=== PATIENT | female | born 1985 | race Caucasian/White ===

== ENCOUNTER 2021-07-14 15:41 | Outpatient (CLI) | payer OTHER, SELFPAY | END 2021-07-14 23:59 | disposition home or self-care (01) | LOC: LABSPEC 15:44 | PROVIDERS: Referring Provider Otolaryngology; Visit Provider Otolaryngology | DX: J01.90 Acute sinusitis, unspecified (principal) | CPT/HCPCS: 87070; 87077; 87205 ==

== ENCOUNTER 2023-12-09 08:11 | Day surgery (SDC) | payer OTHER, SELFPAY ==
[2023-12-06 15:31] LABS: Anion Gap 6 (5-15); BUN 12 mg/dL (7-18); BUN/Creat Ratio 12.2 RATIO (10-20); Calcium,Total 9.4 mg/dL (8.5-10.1); Chloride 105 mmol/L (98-107); Creatinine, Serum 0.98 mg/dL (0.55-1.02); EST Glomerular Filtration Rate 67 mL/min (>60); Est Glom Filt Rate - Afr Amer 81 mL/min (>60); Glucose 109 mg/dL (74-106); Potassium 4.4 mmol/L (3.5-5.1); Sodium Level 137 mmol/L (136-145)
[2023-12-06 15:42] LABS: Hemoglobin A1c 6.2 % (3.8-5.6)
[2023-12-09] VITALS (8 sets, daily range): BP systolic 108–128; BP diastolic 84–91; PULSE 73–94; RESP 16–20; TEMP 36.4–36.6; O2SAT 91–98; BMI 52.7
[2023-12-09 08:50] LABS: Internal QC Validated? YES +Cl - CLEAR BKGD; Pregnancy, Urine Negative Negative; Record Kit Lot#,Urine Preg HCG0000772476
--- NOTE | 2023-12-09 09:19 | PCM.PRE.AN2 ---
ASA Classification* ASA Classification ASA Classification: 3 Assessment & Plan Anesthesia* Anesthesia Assessment Anesthesia Assessment: Discussed sedation and/or anesthesia options, risks, benefits, and alternatives with patient/parents/legal guardian/POA. Questions invited. The patient/parents/legal guardian/POA seems to understand and agrees to proceed with anesthesia plan. Reviewed the physical assessment, medical history, allergy history and patient home medications list prior to surgery/procedure/anesthetic and documented any changes. Performed airway and anesthesia risk assessments. Anesthesia Type Anesthesia Type: General (*see written pre anesthesia record for full assessment) Anesthesia Focused Assessment* Temperature: 98 F Pulse Rate: 80 Blood Pressure: 116/91 Respiratory Rate: 16 Pulse Ox: 98 Airway Assessment Mouth opens: >3 cm Mallampati Score: II Focused Labs Anesthesia Preop lab: CBC WBC 11.5 k/mm3 (4.4-11.0) H 10/05/12 09:12 RBC 4.75 M/mm3 (4.2-5.4) 10/05/12 09:12 Hgb 14.2 g/dl (12.0-15.0) 10/05/12 09:12 Hct 42.1 % (37-47) 10/05/12 09:12 Plt Count 231 K/mm3 (150-450) 10/05/12 09:12 CHEMISTRY Potassium 4.4 mmol/L (3.5-5.1) 12/06/23 13:54 Sodium 137 mmol/L (136-145) 12/06/23 13:54 BUN 12 mg/dL (7-18) 12/06/23 13:54 Creatinine 0.98 mg/dL (0.55-1.02) 12/06/23 13:54 Glucose 109 mg/dL (74-106) H 12/06/23 13:54 COAG Urine Test Negative Negative 12/09/23 08:40 Pre-Assessment Diagnosis/Proposed Procedure Planned Operative Procedure(s): Functional Endoscopoic Sinus Surgery Anesthesia History 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 When Was Last Pacemaker Check QUESTION #4 FULL TEXT: You/Your Family Experience fever (hyperthermia) with Anesthesia Last Oral Intake Last Oral intake: Last Oral Intake NPO since Meds taken in AM with sips of water? Meds patient instructed to take am of surgery PONV PONV - net programmer analyst: PONV - net programmer analyst Female Yes 12/02/23 09:06 HX of Motion Sickness No 12/02/23 09:06 HX of N/V After Surgery No 12/02/23 09:06 Non-Smoker No 12/02/23 09:06 Duration of Surgery greater Yes 12/02/23 09:06 than 60 minutes Number of Risk Factors 2 12/02/23 09:06 PONV Score Moderate Risk 12/02/23 09:06 Height & Weight Height & Weight: Anesthesia: Height & Weight Height 5 ft 4 in 12/09/23 09:00 Weight: 139.4 kg 12/09/23 09:00 Body Mass Index (BMI) 52.7 12/09/23 09:00 Respiratory Assessment Respiratory Assessment - net programmer analyst: Respiratory Tract Infection Hx - net programmer analyst Hx Respiratory Tract Infection No 12/02/23 09:06 STOP Sleep Apnea STOP Sleep Apnea - net programmer analyst: STOP Sleep Apnea - net programmer analyst Hx Hypertension Yes: HX OF, NO MEDS 12/02/23 09:06 PRESENTLY Hx Sleep Apnea No 12/02/23 09:06 CPAP BIPAP Do you snore loudly (louder No 12/02/23 09:06 than talking or can be heard Do you often feel tired/ No 12/02/23 09:06 fatigued/ sleepy during daytime? Has anyone observed you stop No 12/02/23 09:06 breathing during sleep? STOP Results Negative 12/02/23 09:06 QUESTION #5 FULL TEXT : Do you snore loudly (louder than talking or can be heard through closed doors)? 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 Specify any problems Hx of Preganancy in last 3 No 12/02/23 09:06 Months Nurse Filling Out Transfusion VCHRISTIN 12/02/23 09:06 & Questions: Date: 12/02/23 12/02/23 09:06 Time: 09:08 12/02/23 09:06 Patient unable to answer at this time (ie. confused, unrespo /Reproduction History /Reproductive History - net programmer analyst: /Reproductive Hx- net programmer analyst Hx Now No 12/02/23 09:06 Gestational Age (in weeks): EDC: Hx Hx Para Hx Section SAB No 12/02/23 09:06 Active Medications Active Medications: Current Medications Generic Name Dose Route Start Last Admin Trade Name Freq PRN Reason Stop Dose Admin Lactated Ringer's 1,000 mls @ 15 mls/hr 12/09/23 09:30 IV .Q48H REG PFSH Medical History Wears glasses Anxiety History of steroid therapy Diabetes Gastric reflux Vapes nicotine containing substance Chronic cough Hypertension Home Medications ?Medication ?Instructions ?Recorded ?Last Taken ?Type buspirone 5 mg tablet 5 mg PO BID 12/02/23 Unknown History fenugreek seed 610 mg capsule 610 mg PO BID 12/02/23 Unknown History fluoxetine 40 mg capsule 40 mg PO DAILY 12/02/23 Unknown History metformin 1,000 mg tablet 1,000 mg PO BID 12/02/23 Unknown History norethindrone acetate 5 mg tablet 5 mg PO DAILY 12/02/23 Unknown History omeprazole 20 mg capsule,delayed 20 mg PO DAILY 12/02/23 Unknown History release tirzepatide 5 mg/0.5 mL 5 mg subcut QWEEK 12/02/23 12/02/23 History subcutaneous pen injector (Slyunjessica) sulfamethoxazole 800 1 tab PO Q12.TCU 12/09/23 Unknown History mg-trimethoprim 160 mg tablet Allergy/AdvReac Type Severity Reaction Status Date / Time ondansetron (From Zofran) Allergy Severe Swelling Verified 12/09/23 08:48 Penicillins (PCN) Allergy Severe Other Verified 12/09/23 08:48 vancomycin Allergy Severe Swelling Verified 12/09/23 08:48 Social History Smoking Status: Current every day smoker tobacco type: e-cigarettes Review of Systems (Anesthesia) ROS Narrative System reviewed and no additional complaints, except as documented.
[2023-12-09] MEDS: Lactated Ringers 1,000 ML 15 ML IV (09:23)
[2023-12-09] MEDS: Oxymetazoline 0.05% 1 SPRAY SPRAY.BTL NASAL (09:23)
--- NOTE | 2023-12-09 09:40 | NASAL_PTH ---
PATIENT: ARMIN TEAGUE LOC: [facility] [place] U#:[id number] AGE/SX: 38/F ROOM: RE12/09/[address]: Dr. Luciano Edwards MD : 1985 BED: DIS: 12/09/2023 SPEC #: [id number] RECD: 12/09/23 12:58 STATUS: FAUSTO JULI #: [id number] TERESITA: 12/09/23 09:[address]: Luciano Edwards DEPT: SURGICAL PATHOLOGY RECD BY: Jenn Buck ENTERED: 12/09/23 13:14 SP TYPE: NASAL SPEC OTHR DR: THERESA Mckeon Tissues: A - Ethmoid sinus, NOS B - Ethmoid sinus, NOS Procedures: Surgery Specimen Level IV HEADER OPERATION: Functional endoscopic sinus surgery PRE-OP DIAGNOSIS: Chronic sinusitis- bilateral TISSUE SUBMITTED: A- Right sinus contents, B- Left sinus contents MICROSCOPIC DIAGNOSIS A. Right sinus contents, curettings: Chronic sinusitis. Fragments of unremarkable bone. B. Left sinus contents, curettings: Chronic sinusitis. Fragments of unremarkable bone. / 12/12/2023 MICROSCOPIC DESCRIPTION Slides are reviewed. GROSS DESCRIPTION A. Received in fixative is one container labeled with the patient's name and designated Right sinus contents. The specimen consists of multiple fragments of hemorrhagic soft tissue mixed with fragments of bone measuring in aggregate 3.0 x 2.5 x 0.3cm. The entire specimen is submitted in one cassette after decalcification. B. Received in fixative is one container labeled with the patient's name and designated Left sinus contents. The specimen consists of multiple fragments of hemorrhagic soft tissue mixed with fragments of bone measuring in aggregate 2.5 x 2.0 x 0.2cm. The entire specimen is submitted in one cassette after decalcification. / 12/09/2023 TC:3 CPT:74773c4,24543
--- NOTE | 2023-12-09 09:47 | PCM.OPRPT ---
Report of Operation Date of Procedure: 12/09/23 Pre-Operative Diagnosis: chronic sinusitis Post-Operative Diagnosis: same Surgery/Procedure Performed:: Bilateral total ethmoidectomy Bilateral maxillary antrostomy Surgeon: Luciano Edwards Type of Anesthesia: General Anesthesiologist: Corbin Bonilla Estimated Blood Loss (mL): minimal Description of Procedure: The patient was taken to the operating room on the patient was taken to the operating room on 12/09/2023. The patient was placed in the supine position on the operating table. The patient was given sufficient general endotracheal anesthesia. The head of bed was elevated 30 degrees. 0 and 30 degrees rigid nasal endoscopes were used throughout the entire case. The middle turbinate, uncinate process were injected with 1% lidocaine with epinephrine bilaterally. The right middle turbinate was medialized with a Greenwood elevator. A ball-tipped sinus seeker was placed into the patient's maxillary sinus. The antrostomy was created with a backbiter. It was opened posteriorly with Linus-Cut forceps. The uncinate process was taken down using a microdebrider. Next, the ethmoid bulla was opened with a small curette. Anterior and posterior ethmoidectomy were then carried out using curette, sinus shaver and 45 degree Blakesley Donald forceps. I then placed Afrin pledgets into the sinonasal cavity. Next attention was turned to the left side. The middle turbinate was medialized with a Greenwood elevator. A ball-tipped sinus seeker was inserted in the patient's maxillary sinus. The antrostomy was created with a backbiter and widened posteriorly with a Linus-Cut forceps. The uncinate process was taken down using a sinus shaver. The ethmoid bulla was opened with a small curette. Anterior posterior ethmoidectomy were then carried out using a sinus shaver, curette and Blakesley Donald forceps. Hemostasis was then achieved using Afrin pledgets. The pledgets were then removed bilaterally and Tang powder was applied bilaterally for absolute hemostasis. The procedure was then terminated. The patient was then awoken and brought to the recovery room in stable condition. Blood loss 30 cc, replacement none. Sponge, needle, instrument count were correct at the end of the procedure.
--- NOTE | 2023-12-09 09:48 | DS.PCM_ITS ---
Providers Primary Care Physician: THERESA Mckeon Reason For Visit: Functional Endoscopoic Sinus Surgery Medications at Discharge Home Medications buspirone 5 mg tablet 5 mg PO BID 12/02/23 fenugreek seed 610 mg capsule 610 mg PO BID 12/02/23 fluoxetine 40 mg capsule 40 mg PO DAILY 12/02/23 metformin 1,000 mg tablet 1,000 mg PO BID 12/02/23 norethindrone acetate 5 mg tablet 5 mg PO DAILY 12/02/23 omeprazole 20 mg capsule,delayed release 20 mg PO DAILY 12/02/23 tirzepatide 5 mg/0.5 mL subcutaneous pen injector (Mounjaro) 5 mg subcut QWEEK 12/02/23 sulfamethoxazole 800 mg-trimethoprim 160 mg tablet 1 tab PO Q12.TCU 12/09/23 Weight / BMI Weight Weight: 139.4 kg Body Mass Index (BMI) 52.7 ABG / Lab / Microbiology Data 12/06/23 13:54 Laboratory: Laboratory Results - last 24 hr 12/09/23 08:40: Urine Test Negative D/C Instructions Discharge Diet: No restrictions Additional Dressing/Incision Instructions: no nose blowing Additional Instructions: start irrigation tomorrow. Irrigate 4x/day Please Follow Up With: Luciano Edwards MD When: next week Meaningful Use Info Meaningful Use Meaningful Use Diagnoses (Choose all that apply): None applicable Ischemic Stroke Statin Dosing Therapy Reference: STATIN DOSE THERAPY REFERENCE: * Patients > 75 years receive moderate or high dose statin therapy. * Patients 75 years or YOUNGER should receive HIGH intensity statin dose unless contraindicated. You will be required to document reason for non-treatment if statin daily dose does not meet guidelines. HIGH DOSE STATIN THERAPY DAILY Atorvastatin > than or = to 40 mg Rosuvastatin > than or = to 20 mg Amlodipine + Atorvastatin > than or = to 2.5/40 mg Ezetimibe + Simvastatin 10/80 mg Simvastatin 80mg Discharge Plan Admission Attending Provider: Luciano Edwards Primary Care Provider: Coreen Keller Instructions Print Language: Citizen Of [place] Discharge Orders/Prescriptions Prescriptions: No Action metformin 1,000 mg tablet 1,000 mg PO BID fenugreek seed 610 mg capsule 610 mg PO BID buspirone 5 mg tablet 5 mg PO BID norethindrone acetate 5 mg tablet 5 mg PO DAILY Mounjaro 5 mg/0.5 mL pen injector 5 mg subcut QWEEK fluoxetine 40 mg capsule 40 mg PO DAILY omeprazole 20 mg capsule,delayed release(DR/EC) 20 mg PO DAILY sulfamethoxazole-trimethoprim 800-160 mg tablet 1 tab PO Q12.TCU Disposition Disposition (needs filled in before D/C Order can be placed): Home, Self Care
[2023-12-09] MEDS: Lidocaine 1% /Epi 1:100 (50ml) 50 ML VIAL (10:10)
[2023-12-09] MEDS: Oxymetazoline 0.05% 1 SPRAY SPRAY.BTL 15 SPRAY (10:10)
[2023-12-09 10:25] LABS: Bedside Glucose 136 mg/dL (74-106)
--- NOTE | 2023-12-09 11:21 | PCM.POST.ANE ---
Anesthesia: Postop Eval I Current Vital Signs Temperature: 97.5 F Pulse Rate: 94 Blood Pressure: 108/85 Respiratory Rate: 20 Pulse Ox: 95 Assessment Airway patent: Yes Spontaneous unlabored respirations: Yes nausea: No Vomiting: No Anesthesia Complication: No Fluid Hydration Crystalloid volume administer (ml): 1,000 Total IV fluid infused: 1,000 Progress Note Anesthesia document: Postop Eval 1 completed: Yes
--- NOTE | 2023-12-09 11:57 | POSTOPAN2_ITS ---
Anesthesia Postop Eval I Sum Postop Eval Completion status Anesthesia document: Postop Eval 1 completed: Yes Anesthesia Postop Eval I Summary Anesthesia Postop Eval I Summary: Anesthesia Postop Eval I: Assessment Summary Airway patent Yes 12/09/23 11:21 PROGRAM PROJECT MANAGER.CSIR Spontaneous unlabored Yes 12/09/23 11:21 PROGRAM PROJECT MANAGER.CSIR respirations Mental status nausea No 12/09/23 11:21 PROGRAM PROJECT MANAGER.CSIR Vomiting No 12/09/23 11:21 PROGRAM PROJECT MANAGER.CSIR Anesthesia Postop Eval I: Fluid Summary Crystalloid volume administer 1,000 12/09/23 11:21 PROGRAM PROJECT MANAGER.CSIR (ml) Colloids volume administered ( ml) Blood Product volume administered (ml) Total IV fluid infused 1,000 12/09/23 11:21 PROGRAM PROJECT MANAGER.CSIR Anesthesia Postop Eval I: Summary Notes Anesthesia Complication No 12/09/23 11:21 PROGRAM PROJECT MANAGER.CSIR Anesthesia Complication Comment: Post-operative progress note Anesthesia: Postop Eval II Evaluation Mental status: Awake Pain Level: 0 nausea: No Vomiting: No
--- NOTE | 2023-12-09 11:57 | PCM.POSTANE2 ---
Anesthesia Postop Eval I Sum Postop Eval Completion status Anesthesia document: Postop Eval 1 completed: Yes Anesthesia Postop Eval I Summary Anesthesia Postop Eval I Summary: Anesthesia Postop Eval I: Assessment Summary Airway patent Yes 12/09/23 11:21 NEWS GATHERING TECHNICIAN.CSIR Spontaneous unlabored Yes 12/09/23 11:21 NEWS GATHERING TECHNICIAN.CSIR respirations Mental status nausea No 12/09/23 11:21 NEWS GATHERING TECHNICIAN.CSIR Vomiting No 12/09/23 11:21 NEWS GATHERING TECHNICIAN.CSIR Anesthesia Postop Eval I: Fluid Summary Crystalloid volume administer 1,000 12/09/23 11:21 NEWS GATHERING TECHNICIAN.CSIR (ml) Colloids volume administered ( ml) Blood Product volume administered (ml) Total IV fluid infused 1,000 12/09/23 11:21 NEWS GATHERING TECHNICIAN.CSIR Anesthesia Postop Eval I: Summary Notes Anesthesia Complication No 12/09/23 11:21 NEWS GATHERING TECHNICIAN.CSIR Anesthesia Complication Comment: Post-operative progress note Anesthesia: Postop Eval II Evaluation Mental status: Awake Pain Level: 0 nausea: No Vomiting: No
[2023-12-09] MEDS: Acetaminophen 325 MG Tablet 650 MG PO (12:52)
== END 2023-12-09 13:01 | disposition home or self-care (01) ==
LOC: SDC 08:19 → AC 08:20
PROVIDERS: Anesthesiology; PCP Physician Assistant; Referring Provider Otolaryngology; Visit Provider Otolaryngology
PROC: (CPT 31255; principal; 2023-12-09 09:10)
DX: J32.8 Other chronic sinusitis (principal); E11.9 Type 2 diabetes mellitus without complications; K21.9 Gastro-esophageal reflux disease without esophagitis; F41.9 Anxiety disorder, unspecified; I10 Essential (primary) hypertension; F17.290 Nicotine dependence, other tobacco product, uncomplicated; Z79.899 Other long term (current) drug therapy; Z79.84 Long term (current) use of oral hypoglycemic drugs
CPT/HCPCS: 31255; 31256; 00160; 36415; 80048; 81025; 82962; 83036; 88305